=== PATIENT | male | born 1980 | race Caucasian/White ===

== ENCOUNTER 2018-01-17 10:43 | Inpatient (IN) | payer OTHER ==
[~2018-01-17] VITALS: Ht 177.8 cm; Wt 68.0 kg
--- NOTE | 2018-01-17 15:50 | NUR ---
Pre-admission Note: Client is seen in intake at this time. He appears anxious, flushed, agitated, sweating. He states "I feel so fatigued." He appears to be rubbing his back and states "My back is killing me, I think it's flaring up again." He appears worried, disheveled, and irritable. Educated patient on the admission process and verbalized good understanding. He states "I'm here for drugs" He reports using Whiskey, Xanax, Percocet and Marijuana. He reports past medical hx of Epilepsy, Bipolar Disorder, Anxiety Disorder, Chronic Low Back pain, Splenectomy, hx of intracerebral hemorrhage, traumatic brain injury, and L4/L5 surgery, He complains of fatigue, myalgia, anxiety, agitation, chills, runny nose, hot flashes and sweating. COWS 16/CIWA [address] upon [address] VS stable[address] Dr. Davidson aware of patient's arrival in intake office. Will continue with the admission process when patient arrives in the unit.
[2018-01-17] MEDS ORDERED: MIRALAX 17 GM POWD.PACK PO PRN (16:00)
[2018-01-17] MEDS ORDERED: LORAZEPAM 2 MG/1 ML VIAL IM PRN (16:00)
[2018-01-17] MEDS ORDERED: LORAZEPAM 1 MG TABLET PO PRN (16:00)
[2018-01-17] MEDS ORDERED: ONDANSETRON 4 MG/2 ML VIAL IM PRN (16:00)
[2018-01-17] MEDS ORDERED: MAGNESIUM HYDROXIDE 30 ML LIQUID UDC PO PRN (16:00)
[2018-01-17] MEDS ORDERED: CLONIDINE HCL 0.1 MG TABLET PO PRN (16:00)
[2018-01-17] MEDS ORDERED: LOPERAMIDE HCL 2 MG CAPSULE PO PRN ×2 (16:00)
[2018-01-17] MEDS ORDERED: DICYCLOMINE HCL 20 MG TABLET PO PRN (16:00)
[2018-01-17] MEDS ORDERED: MAG HYDROX/AL HYDROX/SIMETH 30 ML LIQUID UDC PO PRN (16:00)
[2018-01-17] MEDS ORDERED: diphenhydrAMINE 50 MG CAPSULE PO PRN (16:00)
[2018-01-17] MEDS ORDERED: THIAMINE HCL 200 MG/2 ML VIAL IM ONE (16:00)
[2018-01-17] MEDS ORDERED: METHOCARBAMOL 750 MG TABLET PO PRN (16:00)
[2018-01-17 16:02] VITALS: BP 113/64
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
[2018-01-17 16:21] LABS: BASOPHILS # (AUTO) 0.1 K/uL (0.0-8.0); BASOPHILS % (AUTO) 0.7 % (0.0-2.0); EOSINOPHILS # (AUTO) 0.3 K/uL (0.0-0.7); EOSINOPHILS % (AUTO) 3.4 % (0.0-7.0); HEMATOCRIT 47.4 % (36.7-47.1); HEMOGLOBIN 16.4 g/dL (12.5-16.3); LYMPHOCYTES # (AUTO) 3.5 K/uL (20.0-40.0); LYMPHOCYTES % (AUTO) 33.6 % (20.5-51.5); MEAN CORPUSCULAR HEMOGLOBIN 29.4 uug (23.8-33.4); MEAN CORPUSCULAR HGB CONC 35 g/dL (32.5-36.3); MEAN CORPUSCULAR VOLUME 84.8 fL (73.0-96.2); MONOCYTES # (AUTO) 0.8 K/uL (2.0-10.0); MONOCYTES % (AUTO) 7.8 % (0.0-11.0); NEUTROPHILS # (AUTO) 5.7 K/uL (1.8-8.9); NEUTROPHILS % (AUTO) 54.5 % (38.5-71.5); PLATELET COUNT (AUTO) 237 K/uL (152-348); RED BLOOD CELL COUNT(AUTO) 5.58 MIL/uL (4.06-5.63); WHITE BLOOD COUNT (AUTO) 10.4 K/uL (3.6-10.2)
[2018-01-17 16:32] LABS: *AMPHETAMINE, URINE NEGATIVE (NEGATIVE); *BARBITURATE, URINE NEGATIVE (NEGATIVE); *CANNABINOID, URINE POSITIVE (NEGATIVE); *COCCAINE, URINE NEGATIVE (NEGATIVE); *OPIATE, URINE NEGATIVE (NEGATIVE); *PHENCYCLIDINE SCREEN,URINE NEGATIVE (NEGATIVE)
[2018-01-17] MEDS ORDERED: BUPR300T52 PO (16:37)
[2018-01-17] MEDS ORDERED: DIVA500T4 PO (16:37)
[2018-01-17 16:38] LABS: BILIRUBIN,TOTAL 0.4 mg/dL (0.2-1.0); CREATININE 1.1 mg/dL (0.6-1.3); MAGNESIUM 2.4 mg/dL (1.8-2.4); POTASSIUM 3.7 mmol/L (3.5-5.1); TOTAL PROTEIN, SERUM 7.9 g/dL (6.4-8.2)
[2018-01-17] MEDS: BUPRENORPHINE HCL 2 MG TAB.SUBL SL PRN ×2 (16:47→22:04)
[2018-01-17] MEDS: LORAZEPAM 1 MG TABLET PO PRN (16:47)
[2018-01-17] MEDS: IBUPROFEN 600 MG TABLET PO PRN (16:47)
--- NOTE | 2018-01-17 16:47 | NUR ---
Ativan 2 mg/Subutex 4 mg/Robaxin 750 mg/Motrin 600 mg PO given: COWS 18/CIWA 16, patient presented with tremors, sweating, anxiety, agitation, myalgia, 6/10 low back pain, runny nose, and appears flushed. Heat packs provided to low back with no effect. Patient states "I feel like shit, like a truck ran over me, my joints just hurt." Medicated patient with Ativan 2 mg, Subutex 4 mg, Robaxin 750 mg and Motrin 600 mg PO as ordered. Will monitor for effectiveness.
--- NOTE | 2018-01-17 17:17 | NUR ---
Re-assessment: Subutex: COWS 11, less yawning, anxiety and less tremors noted. PRN Subutex was effective.
--- NOTE | 2018-01-17 17:47 | NUR ---
Re-assessment: Ativan/Motrin/Robaxin CIWA 12, patient is noted to be more at ease. He appears less anxious, less agitated. He is seen watching TV in his room. He reports PL is at 2/10. Ativan, Robaxin and Ativan has been effective.
--- NOTE | 2018-01-17 19:06 | NUR ---
End of Shift Notes: Patient will be starting his taper in AM. VS monitored closely. No significant abnormalities noted. Withdrawal symptoms were closely monitored, patient presented with chills, hot flashes, sweating, anxiety, agitation and tremors. Last , patient was medicated with Ativan 2 mg, Subutex 4 mg, Motrin and Robaxin at 1647 with help. On fall and seizure precautions. Stayed in his room for the remainder of the shift. Will continue to monitor
[2018-01-17 19:23] LABS: THYROID STIMULATING HORMONE 0.437 mIU/mL (0.358-3.740)
[2018-01-17 20:00] VITALS: BP 128/77
--- NOTE | 2018-01-17 20:00 | NUR ---
Start of Shift Patient lying on bed, with facial grimacing noted. Patient appears anxious, focused on his low back pain r/t history of lumbar surgery and compressed disc. Pain level=8-9/10. Pt is AAOx4. Patient verbalized, "the pain in my low back is killing me." Patient noted to have flushed skin and with tremors noted. Pt noted to be melancholic and isolative. Provided education, teachings and instructions on medications, plan of care and treatment. Fall, universal, seizure and safety prec in place. Call light within reach. Latest COWS=12, CIWA=12. Will continue to monitor.
[2018-01-17] MEDS ORDERED: LORAZEPAM 1 MG TABLET PO SCH (21:00)
[2018-01-17] MEDS ORDERED: PATIENT MAY USE OWN MED- MD OK PO SCH (21:00)
[2018-01-17] MEDS ORDERED: DIVALPROEX ER 500 MG TAB.SR.24H PO ONE (21:00)
[2018-01-17] MEDS ORDERED: KETOROLAC TROMETHAMINE 30 MG INJ IM ONE (21:15)
[2018-01-17] MEDS: GABAPENTIN 300 MG CAPSULE PO SCH (21:39)
--- NOTE | 2018-01-17 22:05 | NUR ---
RN note PRN Subutex Pt c/o increasing anxiety, goosebumps and noted to be flushed and with sweating. COWS=14. Administered Subutex 4 mg SL PRN as ordered. Will reassess.
--- NOTE | 2018-01-17 23:05 | NUR ---
RN note reassess Pt appears more relaxed, verbalized that anxiety has "somewhat decreased" and no piloerection noted. COWS=11.
[2018-01-18] VITALS: BP 117/74
[2018-01-18] MEDS: ACETAMINOPHEN 325 MG TABLET PO PRN (00:57)
--- NOTE | 2018-01-18 00:58 | NUR ---
RN note PRN Tylenol Pt c/o headache=03/19. Administered Tylenol 650 mg PO PRN as ordered. Will reassess.
--- NOTE | 2018-01-18 02:00 | NUR ---
RN note reassess Pt verbalized that headache decreased to 3/10.
[2018-01-18 04:00] VITALS: BP 124/71
--- NOTE | 2018-01-18 07:18 | NUR ---
End of Shift Patient asleep on bed, arousable, and continues to c/o low back pain. Patient with flushed skin, sweating and tremors noted. Pt appears depressed and isolative. Fall, universal, seizure and safety prec in place. Call light within reach. Latest COWS=10, CIWA=10, slept for 4 hours. Will continue to monitor.
--- NOTE | 2018-01-18 07:36 | NUR ---
START OF SHIFT Pt is a 37 yr old male, A&Ox4. pt was admitted on 01/17/18 for ETOH/Benzo/Opiate withdrawal and is on 5 day Subutex and 5 day Ativan taper as ordered. Received report from shift commander nurse. Pt received Toradol x1 for back pain. medication was effective. Pt slept for 4 hrs. Last COWS score was 10 and CIWA score was 10. Pt is currently in bed resting with respirations even and unlabored. Skin is intact, warm and moist to touch. Safety precautions observed. Call light is within reach. Will continue to monitor.
[2018-01-18 08:00] VITALS: BP 112/70
[2018-01-18 08:06] LABS: HEPATITIS B SURFACE AG Negative (Negative)
[2018-01-18] MEDS: BUPRENORPHINE HCL 2 MG TAB.SUBL SL SCH ×4 (08:48→21:26)
--- NOTE | 2018-01-18 08:48 | NUR ---
NSG NOTES Pt is noted with with increase anxiety m/b difficulty staying still. Pt is noted with facial sweats and fine tremors on bilateral hands. Pt is c/o runny nose, abdominal cramping and muscle aches and headache. COWS score was 15 and CIWA score was 14. Subutex 4mg SL and Ativan 2mg PO as scheduled at 0900 was administered and joao well. Encouraged increase fluid intake. Will continue to monitor.
[2018-01-18] MEDS: THIAMINE HCL 100 MG TABLET PO SCH (08:49)
[2018-01-18] MEDS: LORAZEPAM 1 MG TABLET PO SCH ×4 (08:49→21:26)
[2018-01-18] MEDS: FOLIC ACID 1 MG TABLET PO SCH (08:49)
[2018-01-18] MEDS: MULTIVITAMINS,THERAPEUTIC TABLET PO SCH (08:49)
[2018-01-18] MEDS: GABAPENTIN 300 MG CAPSULE PO SCH ×3 (08:49→21:26)
[2018-01-18] MEDS ORDERED: TUBERCULIN,PURIF.PROT.DERIV. 5 TU/0.1 ML TEST ID ONE (09:00)
[2018-01-18 12:00] VITALS: BP 129/80
[2018-01-18] MEDS: ONDANSETRON ODT 4 MG TAB.RAPDIS SL PRN (12:36)
--- NOTE | 2018-01-18 12:36 | NUR ---
PRN Zofran 4mg SL administered for intermittent nausea, no episodes of emesis. Mirlande guicho and saltine crackers offered to client. Primary nurse to reassess. call light within reach.
--- NOTE | 2018-01-18 13:36 | NUR ---
PRN RE-ASSESSMENT Zofran PRN was effective. Pt denies any n/v.
--- NOTE | 2018-01-18 15:36 | NUR ---
ENDORSEMENT GIVEN Gave report to Nayely PAGAN to continue with care. Pt is cooperative with medication regimen. Last COWS score was 16 and CIWA score was 12 at 1200. Pt received Zofran PRN for nausea at 1236. Medication was effective. Pt is in stable condition.
--- NOTE | 2018-01-18 15:37 | NUR ---
ASSUMED CARE Assumed care for patient from primary nurse, all pertinent information discussed, will continue to monitor patient closely.
[2018-01-18 16:50] VITALS: BP 136/82
[2018-01-18] MEDS: LORAZEPAM 1 MG TABLET PO PRN (18:57)
--- NOTE | 2018-01-18 18:57 | NUR ---
PRN ATIVAN received PRN: Ativan 2 mg PO as ordered for s/sx of withdrawal with ciwa score of: 13. Patient with increase anxiety, restlessness, and diaphoresis, flushed face, clammy skin, increase respirations, inability to sit still, and fidgety. Patient provided with non pharmacological interventions with no relief. endorsed to restaurant shift leader nurse to follow up on effectiveness of medication.
--- NOTE | 2018-01-18 19:03 | NUR ---
END OF SHIFT Patient monitored closely, continues on Ativan and Subutex taper as ordered. patient presented with: anxiety, agitation, head fullness, sweats, enlarged pupils, bone and joint aches, abdominal cramps and goosebump. Patient with last cow score of: 12 and ciwa score of: 13, received PRN: Ativan 2mg PO as ordered for s/sx of withdrawal with ciwa score of: 13. Patient with increase anxiety, restlessness, and diaphoresis. Endorsed to night stocker nurse to follow up on effectiveness of medication. Patient encouraged participation in therapy sessions, patient denies any SI/HI, Patient was encouraged to verbalize feelings, encouraged to develop coping skills and utilization of non pharmacological interventions.Encouraged patient to increase PO fluid intake as tolerated. Patients safety measures are in place. call light kept within reach, will continue to monitor. Endorsed to night stocker nurse, all pertinent information discussed.
[2018-01-18 20:00] VITALS: BP 141/76
--- NOTE | 2018-01-18 20:00 | NUR ---
Start of Shift Patient asleep on bed, got startled and screamed when woken up gently. Per patient, "I don't know why I screamed. I think I almost had a panic attack. But I know I'm in a safe place." Pt is AAOx4, noted with anxiety and c/o low back pain=4/10. Pt noted to be melancholic and isolative, with flushed skin and tremors observed. Provided education, teachings and instructions on medications, plan of care and treatment. Fall, universal, seizure and safety prec in place. Call light within reach. Latest COWS=11, CIWA=9. Will continue to monitor.
[2018-01-18] MEDS ORDERED: DIVALPROEX ER 500 MG TAB.SR.24H PO SCH ×2 (21:00)
[2018-01-18] MEDS: BACLOFEN 10 MG TABLET PO SCH (21:26)
[2018-01-18] MEDS: KETOROLAC TROMETHAMINE 30 MG INJ IM PRN (21:27)
[2018-01-18] MEDS: DEPAKOTE 500 MG PO SCH (21:28)
--- NOTE | 2018-01-18 21:29 | NUR ---
RN note PRN Toradol Pt c/o low back pain=9/10, with facial grimacing, moaning and restlessness noted. Administered Toradol 30 mg IM PRN as ordered. Will reassess.
--- NOTE | 2018-01-18 22:05 | NUR ---
RN note reassess Pt verbalized pain level decreased to 4/10.
[2018-01-19] VITALS (7 sets, daily range): BP systolic 117–153; BP diastolic 69–86
--- NOTE | 2018-01-19 07:19 | NUR ---
End of Shift Patient asleep on bed, arousable, AAOx4 and continues to c/o low back pain, current pain level=3/10. Per patient, Toradol was effective in controlling low back pain. Patient with flushed skin, sweating and tremors noted. Pt continues to appear depressed. Fall, universal, seizure and safety prec in place. Call light within reach. Latest COWS=9, CIWA=8, slept for 5 hours. Endorsed to AM shift nurse for continuity of care.
--- NOTE | 2018-01-19 07:58 | NUR ---
BEGINNING OF SHIFT Patient endorsement report received from night order selector nurse, all pertinent information discussed. Patient is a 37 year old male with admitting Dx: Opiate/BZO/etoh withdrawal. Patient is Currently under close observation, patient currently with ongoing Subutex taper as ordered and Ativan taper as ordered. fall and seizure precautions in place and observed at all times. patient slept for 5 hours. Patient with last ciwa score of: 8, last cow score of: 9. Patient received in bed with eyes closed respirations even and unlabored, responsive to verbal stimuli. will educated regarding plan of care for the day, and medication regimen. Patient received PRN: toradol during night order selector. will continue to monitor closely. safety measures in place.
[2018-01-19] MEDS: THIAMINE HCL 100 MG TABLET PO SCH (09:02)
[2018-01-19] MEDS: LORAZEPAM 1 MG TABLET PO SCH ×3 (09:02→20:40)
[2018-01-19] MEDS: FOLIC ACID 1 MG TABLET PO SCH (09:02)
[2018-01-19] MEDS: MULTIVITAMINS,THERAPEUTIC TABLET PO SCH (09:02)
[2018-01-19] MEDS: BACLOFEN 10 MG TABLET PO SCH ×3 (09:03→20:39)
[2018-01-19] MEDS: GABAPENTIN 300 MG CAPSULE PO SCH ×2 (09:03→14:22)
[2018-01-19] MEDS: BUPRENORPHINE HCL 2 MG TAB.SUBL SL SCH ×3 (09:03→20:41)
[2018-01-19] MEDS: KETOROLAC TROMETHAMINE 30 MG INJ IM PRN ×3 (09:03→23:01)
--- NOTE | 2018-01-19 09:04 | NUR ---
PRN TORADOL Patient c/o back pain 03/19, provided with non pharmacological interventions with no relief, administered Toradol Inj as ordered, inj well tolerated, will monitor effectiveness of medication.
--- NOTE | 2018-01-19 10:04 | NUR ---
TORADOL REASSESSMENT Patient reports medication effective, decrease in back pain, current pain level 2/10, tolerable as per patient. will continue to monitor closely.
[2018-01-19] MEDS: DICYCLOMINE HCL 20 MG TABLET PO SCH ×2 (14:21→20:39)
--- NOTE | 2018-01-19 15:50 | NUR ---
ENDORSED CARE Endorsed patient to staff nurse, all pertinent information was discussed. Patient was monitored closely, continues on Ativan and Subutex taper as ordered. patient presented with: elevated heart rate, c/o chills, difficulty sitting still, enlarged pupils, bone and joint aches, moist eyes, yawning, anxiety and gooseflesh.Patient with initial cow score of: 13, and ciwa score of: 11. Patient received PRN: Toradol Injection for back pain , medication was effective, one hour post administration. Patient encouraged participation in therapy sessions, patient denies any SI/HI, Patient was encouraged to verbalize feelings, encouraged to develop coping skills and utilization of non pharmacological interventions.Encouraged patient to increase PO fluid intake as tolerated. Patients safety measures are in place. call light kept within reach, will continue to monitor. Endorsed to staff nurse.
--- NOTE | 2018-01-19 16:00 | NUR ---
ENDORSEMENT RECEIVED ALL PERTINENT INFORMATION RECEIVED FROM OFF GOING NURSE, WILL RESUME CARE OF PATIENT.
--- NOTE | 2018-01-19 17:00 | NUR ---
PRN TORADOL TORADOL 30MG IM GIVEN IN LEFT DELTOID FOR PAIN 8/10 , GENERALIZED BODY ACHES WILL REASSESS
--- NOTE | 2018-01-19 18:00 | NUR ---
TORADOL REASSESS TORADOL 30MG IM EFFECTIVE, PAIN IS NOW 3/10, CONTINUE TO MONITOR
--- NOTE | 2018-01-19 18:46 | NUR ---
END OF SHIFT : PATIENT IS A 37 YR OLD MALE ADMITTED TO [facility] ON 01/17/18 FOR A MEDICALLY SUPERVISED WITHDRAWAL FROM OPIATES/BENZO'S AND ALCOHOL, HE IS ON A 5 DAY ATIVAN/SUBUTEX TAPER AND THIS IS DAY 2. PRN MEDS REQUIRED ON THIS SHIFT : TORADOL 30MG IM X 2. PATIENT HAD A FLUID INTAKE OF 2800 ML, 4 VOIDS AND 0 BM, LAST COWS 9 AND CIWA 9 @ 1700. HE HAS BEEN ATTENDING ALL GROUPS TODAY AND INTERACTING WITH HIS PEERS. PATIENTS WITHDRAWAL SYMPTOMS INCLUDE GENERALIZED BODY ACHES, FLUSHED FACE , BILATERAL TREMORS AND INCREASED ANXIETY. CONTINUE TO FOLLOW MD PLAN OF CARE. ENDORSED TO NIGHT NURSE.
--- NOTE | 2018-01-19 19:30 | NUR ---
START OF SHIFT Received 37 year old male patient admitted on 01/17/18 for ETOH, Xanax, Percocet, Marijuana and Heroin withdrawal. He is alert and oriented x4. Pt noted with anxiety, restlessness, and irritability and complains of body aches. He is receiving a 5 day Ativan and 5 day Subutex taper and is tolerating well. Per endorsement, he received PRN Toradol. Last dose was COWS:9, CIWA:9 at 1700. Breathing is even and unlabored, safety measures in place. Will continue to monitor.
[2018-01-19] MEDS: CLONIDINE HCL 0.1 MG TABLET PO SCH (20:40)
[2018-01-19] MEDS: DEPAKOTE 500 MG PO SCH (20:41)
[2018-01-19] MEDS ORDERED: GABAPENTIN 300 MG CAPSULE PO SCH (21:00)
--- NOTE | 2018-01-19 23:01 | NUR ---
PRN TORADOL Pt complains of left lower back achy pain 10/10. Pt noted with irritability, restlessness and facial grimacing. PRN Toradol administered as ordered. Safety measures in place. Will monitor effectiveness.
--- NOTE | 2018-01-19 23:31 | NUR ---
PRN TORADOL REASSESSMENT PRN medication effective. Pt lying in bed with eyes closed noted to be asleep. Breathing is even and unlabored, safety measures in place. Will monitor.
[2018-01-20] MEDS: ACETAMINOPHEN 325 MG TABLET PO PRN (03:14)
[2018-01-20] MEDS: HYDROXYZINE PAMOATE 25 MG CAPSULE PO PRN (03:14)
--- NOTE | 2018-01-20 03:14 | NUR ---
PRN VISTARIL/TYLENOL Pt complains of headache 6/10 and anxiety. PRN Vistaril and Tylenol administered as ordered. Safety measures in place. Will monitor effectiveness.
--- NOTE | 2018-01-20 04:00 | NUR ---
VITALS REFUSED/COWS, CIWA DEFERRED 0400 vitals refused d/t difficulty falling asleep. COWS and CIWA deferred d/t pt lying in bed with eyes closed and is asleep. Breathing is even and unlabored, safety measures in place. Will monitor.
--- NOTE | 2018-01-20 04:14 | NUR ---
PRN REASSESSMENT PRN medications effective. Pt is lying in bed with eyes closed noted to be asleep. Breathing is even and unlabored, safety measures in place. Will monitor.
--- NOTE | 2018-01-20 06:56 | NUR ---
END OF SHIFT Pt is a 37 year old male patient admitted on 01/17/18 for ETOH, Xanax, Percocet, Marijuana and Heroin withdrawal. He remains alert and oriented x4. Pt was noted with anxiety, restlessness, irritability, body aches, running nose, and insomnia during the shift. He continues on a 5 day Ativan and 5 day Subutex taper and is tolerating well. He received PRN Toradol, Tylenol and Vistaril. He slept a total of 5 hrs, Intake:736mL, Void:x2, BM:0, COWS:10, CIWA:11 at 2300. Breathing is even and unlabored, safety measures in place. Will endorse to AM shift.
--- NOTE | 2018-01-20 07:30 | NUR ---
Start of shift note; Received report from night nurse. Patient is a 37 year old male admitted on 01/17/18 for ETOH/ Benzodiazepine/ Opiate withdrawals. Patient was placed on a 5 day and 5 day Subutex taper, no adverse reactions noted. Patient reported history of epilepsy and withdrawal induced seizures. Patient is on fall and seizure precautions. Educated patient regarding the importance of compliance to treatment and medication regime, patient verbalized understanding. Encouraged patient to verbalize feelings and participate in group therapy and activities. Patient reported lack of sleep, anxiety, stomach cramps, Muscle aches, patient appears restless complaining of diaphoresis. All safety measures secured. Will closely monitor patient.
[2018-01-20 08:00] VITALS: BP 135/95
[2018-01-20] MEDS: DICYCLOMINE HCL 20 MG TABLET PO SCH ×3 (08:17→20:05)
[2018-01-20] MEDS: MULTIVITAMINS,THERAPEUTIC TABLET PO SCH (08:17)
[2018-01-20] MEDS: FOLIC ACID 1 MG TABLET PO SCH (08:18)
[2018-01-20] MEDS: BACLOFEN 10 MG TABLET PO SCH (08:18)
[2018-01-20] MEDS: CLONIDINE HCL 0.1 MG TABLET PO SCH ×2 (08:18→20:05)
[2018-01-20] MEDS: THIAMINE HCL 100 MG TABLET PO SCH (08:18)
[2018-01-20] MEDS: GABAPENTIN 300 MG CAPSULE PO SCH ×3 (08:18→20:05)
[2018-01-20] MEDS ORDERED: LORAZEPAM 1 MG TABLET PO SCH ×2 (09:00→21:00)
[2018-01-20] MEDS ORDERED: BUPRENORPHINE HCL 2 MG TAB.SUBL SL SCH (09:00)
--- NOTE | 2018-01-20 10:24 | NUR ---
Client was prompted to attend twice daily group therapy sessions and client stated he would attend.
[2018-01-20] MEDS ORDERED: LORAZEPAM 1 MG TABLET PO PRN (10:30)
[2018-01-20] MEDS ORDERED: LORAZEPAM 1 MG TABLET PO ONE (10:30)
[2018-01-20] MEDS: DIVALPROEX 250 MG TABLET.DR PO SCH (10:36)
--- NOTE | 2018-01-20 10:39 | NUR ---
MD communication; Patient reported that he is worried that he may have a seizure episode r/t history of withdrawal induced seizures and epilepsy manifested by patient reports aura and metallic taste . Seizure precautions observed, padded side rails up. Placed patient on 1:1 supervision per MD order for seizure precautions. MD ordered one time dose of Ativan 2mg PO one time and Depakote 250mg PO to prevent any withdrawal induced seizures. Medications given as per MD order. Patient's CIWA score is 13 at this time manifested by increase anxiety, agitation, restlessness, diaphoresis, tingling sensation, and diaphoresis. Will closely monitor patient. Sitter at bedside.
[2018-01-20 12:00] VITALS: BP 130/89
[2018-01-20] MEDS ORDERED: TRAZODONE 50 MG TABLET PO PRN (12:15)
[2018-01-20] MEDS: LORAZEPAM 1 MG TABLET PO SCH ×2 (13:05→16:12)
[2018-01-20] MEDS ORDERED: OLANZAPINE ZYDIS 5 MG TAB.RAPDIS PO ONE (13:45)
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
--- NOTE | 2018-01-20 14:48 | NUR ---
Re-assessment; Patient is Awake, calm and comfortable. Redirected patient as needed. Will closely monitor patient for episodes of hallucinations. Safety measures secured. Medical MD was notified of patient's current condition.
[2018-01-20] MEDS: BUPRENORPHINE HCL 2 MG TAB.SUBL SL SCH ×2 (14:58→20:05)
[2018-01-20] MEDS: BACLOFEN 20 MG TABLET PO SCH ×2 (14:58→20:05)
[2018-01-20] MEDS: DOCUSATE SODIUM 250 MG CAPSULE PO SCH (15:00)
[2018-01-20 16:00] VITALS: BP 135/93
[2018-01-20] MEDS: LORAZEPAM 1 MG TABLET PO PRN (17:19)
--- NOTE | 2018-01-20 17:19 | NUR ---
PRN medication; Patient's current CIWA is 15 manifested by anxiety, agitation, patient unable to sit still, tingling sensation. diaphoresis, auditory mild sensitivity, intermittent episodes of visual hallucinations. Patient remained on 1:1 supervision for safety. PRN Ativan 2mg PO given for CIWA of 15. Will closely monitor patient.
--- NOTE | 2018-01-20 18:19 | NUR ---
Re-assessment; Patient current CIWA score is 12, CIWA score has improved. PRN Ativan was effective. Redirected/reoriented patient as needed. Patient is awake, oriented to name , and place. Sitter remained at bedside.
--- NOTE | 2018-01-20 18:54 | NUR ---
End of shift note; Patient is awake, oriented to name , and place. Patient appears anxious, agitated, complaining of tingling sensation, mild sensitivity to auditory disturbances and visual disturbances. Patient received one time dose of Zyprexa 10mg for visual hallucination. Patient also received PRN Ativan for elevated CIWA scores. Last CIWA score is 12 at 1819. Patient continues to be on 1:1 supervision for safety and seizure precautions. All safety measures secured. Met all needs.
--- NOTE | 2018-01-20 19:30 | NUR ---
START OF SHIFT Pt is a 37 y/o male admitted on 01/17/18 for ETOH, benzo and opiate withdrawal. Pt is on a 5 day Ativan and 5 day Subutex taper, 2 one time orders of Ativan 2 mg and PRN Ativan 2 mg administered during day shift. Last CIWA 12 during day shift, pt noted to experience disorientation, confusion and visual hallucinations. Pt on 1:1 for safety. Upon assessment pt is disoriented to place, time and situation. Pt presents with confusion, anxiety, restlessness, inability to sit still, visual disturbances, auditory disturbances, back pain, sweats, agitation. Reoriented patient, pt verbalized feelings of wanting to leave, states, "I need to make sure my sisters are okay." Medications due. Safety measures in place. 1:1 sitter with pt. Will continue to monitor.
[2018-01-20 20:00] VITALS: BP 147/98
[2018-01-20] MEDS ORDERED: QUETIAPINE FUMARATE 100 MG TABLET PO ONE (20:00)
--- NOTE | 2018-01-20 20:00 | NUR ---
PSYCHIATRIST CALLED Pt presents with severe anxiety and agitation, psychiatrist called at 1950, gave one time order for Seroquel 100 mg. Safety measures in [address]. 1:1 sitter with pt.
[2018-01-20] MEDS: DEPAKOTE 500 MG PO SCH (20:04)
--- NOTE | 2018-01-20 20:50 | NUR ---
CRISIS TEAM CALLED Pt verbalized feelings of wanting to leave AMA. Pt presents with confusion, disorientation to place, time and situation. Pt states "I need to leave to check on my sisters, I need to make sure she is safe....We just left the train together." Pt made attempts to leave room/unit. Pt also presents with anxiety, agitation, restlessness.
--- NOTE | 2018-01-20 21:30 | NUR ---
CRISIS TEAM NOTE Pt evaluated by crisis team. Pt placed on 5150 hold for safety. 1:1 sitter at bedside. Safety measures in place.
--- NOTE | 2018-01-21 | NUR ---
COWS/CIWA DEFERRED AND VITALS REFUSED Pt laying in bed with eyes closed, COWS/CIWA deferred, to be assessed when pt is awake per orders. Vitals refused. Respirations even and unlabored. Safety measures in place. Call light within reach. Will continue to monitor.
--- NOTE | 2018-01-21 05:00 | NUR ---
PRN ATIVAN 2 MG ADMINISTRATION CIWA 18, pt presents with anxiety, sweats, visual disturbances, auditory disturbances, confusion, and is disoriented to place, time and situation. Pt mumbling incoherent statements. Safety measures in place. 1:1 sitter at bedside. Will continue to monitor.
[2018-01-21] MEDS: LORAZEPAM 1 MG TABLET PO PRN (05:01)
--- NOTE | 2018-01-21 06:00 | NUR ---
PRN ATIVAN 2 MG REASSESSMENT Pt laying in bed with eyes closed, medication noted effective. Safety measures in place. 1:1 sitter at bedside. Will continue to monitor.
--- NOTE | 2018-01-21 07:15 | NUR ---
END OF SHIFT Pt is a 37 y/o male admitted on 01/17/18 for ETOH, benzo and opiate withdrawal. Pt is on a 5 day Ativan and 5 day Subutex taper, additional Ativan administered during shift. Pt on 1:1 for safety. Pt presented with disorientation to place/time/situation, confusion, anxiety, restlessness, inability to sit still, visual disturbances, auditory disturbances, back pain, sweats, agitation. Reoriented patient, pt verbalized feelings of wanting to leave, states, "I need to make sure my sisters are okay." Psychiatrist called, one time order for Seroquel 100 mg administered at 1999. Crisis team arrived on unit at 2130 for pt verbalizing feelings of wanting to leave AMA while pt was confused, disoriented and hallucinating. Pt placed on 5150 hold. Scheduled medications and PRN Ativan 2 mg administered, effective in S/S of withdrawal AEB COWS 13 and CIWA 23 lowered to COWS 10 and CIWA 18 during shift. Pt slept 10 hours. Intake 500 ml, void x 2, stool x 0. Safety measures in place. 1:1 sitter at bedside. Pts needs have been met. Endorsed to day shift nurse.
[2018-01-21 08:00] VITALS: BP 120/90
--- NOTE | 2018-01-21 08:35 | NUR ---
START OF SHIFT PT IS A 37 Y/O M ADMITTED ON 01/17/18 FOR MEDICALLY SUPERVISED ETOH, BENZO, AND OPIATE WITHDRAWAL. PT IS ON A 5 DAY ATIVAN AND SUBUTEX TAPER; TOLERATING WELL. PT CONTINUES ON 1:1 SITTER; PT HAS BEEN PLACED ON 5150 HOLD LAST NIGHT. PT HAS A FLAT AFFECT, PT IS MOVING THINGS AROUND THE BREAKFAST TRAY AND HAS NO EYE CONTACT WHEN TALKING. PT IS DISTRUSTING OF STAFF AND IS DISORIENTED TO TIME, PLACE AND CURRENT SITUATION. PT PRESENTS AGITATION, ANXIETY, IRRITABILITY, RESTLESSNESS, DIAPHORESIS, HOT/COLD FLASHES, PUPIL DILATION, GENERALIZED BODY ACHES, SENSITIVITY TO LIGHT. REORIENTED PT AND ENCOURAGED PT TO VERBALIZED FEELINGS. SIDE RAILS UPX2 AND PADDED, BED IN LOW POSITION, CALL LIGHT WITHIN REACH. SAFETY MEASURES IN PLACE. WILL MONITOR AND PROVIDE CARE.
[2018-01-21] MEDS ORDERED: LORAZEPAM 1 MG TABLET PO SCH ×3 (09:00→21:00)
[2018-01-21] MEDS: FOLIC ACID 1 MG TABLET PO SCH (09:49)
[2018-01-21] MEDS: MULTIVITAMINS,THERAPEUTIC TABLET PO SCH (09:49)
[2018-01-21] MEDS: CLONIDINE HCL 0.1 MG TABLET PO SCH ×2 (09:50→20:15)
[2018-01-21] MEDS: GABAPENTIN 300 MG CAPSULE PO SCH ×2 (09:50→14:37)
[2018-01-21] MEDS: THIAMINE HCL 100 MG TABLET PO SCH (09:50)
[2018-01-21] MEDS: BACLOFEN 20 MG TABLET PO SCH ×3 (09:50→20:14)
[2018-01-21] MEDS: DOCUSATE SODIUM 250 MG CAPSULE PO SCH (09:50)
[2018-01-21] MEDS: DICYCLOMINE HCL 20 MG TABLET PO SCH ×3 (09:50→20:14)
[2018-01-21] MEDS: BUPRENORPHINE HCL 2 MG TAB.SUBL SL SCH ×3 (09:51→20:16)
[2018-01-21] MEDS: DIVALPROEX 250 MG TABLET.DR PO SCH (09:52)
[2018-01-21] MEDS: LIDOCAINE 5% PATCH TD SCH ×2 (10:45→11:40)
--- NOTE | 2018-01-21 12:00 | NUR ---
COWS/CIWA DEFERRED VS REFUSED PT IS LAYING IN BED WITH EYES CLOSED SLEEPING. RESPIRATIONS EVEN EVEN AND UNLABORED, RR:16. SAFETY MEASURES IN PLACE. 1:1 SITTER AT BEDSIDE. WILL CONTINUE TO MONITOR.
--- NOTE | 2018-01-21 12:39 | NUR ---
Firearms Report: Straddle Bug completed and submitted [employer] Firearms Report per hospital policy on 01/21/18.
[2018-01-21] MEDS: IBUPROFEN 600 MG TABLET PO PRN (14:37)
[2018-01-21 14:48] VITALS: BP 136/86
--- NOTE | 2018-01-21 14:50 | NUR ---
PRN IBUPROFEN 600 MG PO PRN GIVEN FOR C/O BACK ACHE 03/19 PAIN. WILL MONITOR AND REASSESS.
[2018-01-21] MEDS: ONDANSETRON ODT 4 MG TAB.RAPDIS SL PRN (14:58)
--- NOTE | 2018-01-21 14:58 | NUR ---
PRN ZOFRAN 4 MG SL PRN GIVEN FOR C/O NAUSEA. PT STATED THE SUBUTEX CAUSED NAUSEA. WILL MONITOR AND REASSESS. 1:1 AT BEDSIDE.
--- NOTE | 2018-01-21 15:58 | NUR ---
REASSESSMENT PT IS LAYING BED WITH EYES CLOSED, APPEARS TO BE SLEEPING. RESPIRATIONS EVEN AND UNLABORED, RR:16. SAFETY MEASURES IN PLACE. 1:1 SITTER AT BEDSIDE WILL CONTINUE TO MONITOR.
--- NOTE | 2018-01-21 16:00 | NUR ---
COWS/CIWA DEFERRED VS REFUSED PT IS SLEEPING AT THIS TIME; COWS/CIWA AND VS TO BE ASSESS WHEN PT IS AWAKE. SITTER AT BEDSIDE.
--- NOTE | 2018-01-21 19:13 | NUR ---
END OF SHIFT LAST COWS 14 AND CIWA 16 @1600. PT A/OX2, PRESENTED DISORIENTATION AND CONFUSION DURING SHIFT. PT APPEARED TO BE DISTRUSTING OF STAFF IN AM. PT TOOK MULTIPLE NAPS DURING SHIFT. WHEN PT HAD AWOKE MID AFTERNOON, PT WAS IN A GOOD MOOD AND TRUSTING OF STAFF, C/O DIAPHORESIS, HAVING GENERALIZED BODY ACHES, FEELING LIKE BEING "HIT BY A TRUCK." PT MUMBLED ABOUT NOT WANTING TO PARTICIPATE IN FOOTBALL. PT WAS NOT ORIENTED TO SITUATION, PLACE AND TIME AT 1520 BEFORE FALLING BACK ASLEEP. PT CONTINUES ON 5150 HOLD FOR BEING GRAVELY DISABLED; 1:1 SITTER BY BEDSIDE. LAST COWS 14 AND CIWA 16 @ 1450. SAFETY MEASURES IN PLACE. WILL GIVE ENDORSEMENT TO PAINTER AND GRADER CORK.
--- NOTE | 2018-01-21 19:35 | NUR ---
START OF SHIFT Received 37 year old male patient admitted on 01/17/18 for ETOH, Xanax, Percocet, Marijuana, and Heroin withdrawal. He is on a 5150 for GD and on 1:1 for safety. Pt is alert and oriented x3. He is able to verbalize his name, place and situation. Pt is disoriented to date and thinks the month is June. Reoriented pt to correct date. Pt verbalized understanding. Pt noted with anxiety, agitation, restlessness, clammy skin, and he denies visual/auditory hallucinations. Pt stated " I'm not seeing or hearing anything right now, but I was earlier today." Per endorsement, pt was noted with confusion and disorientation during the day but was able to be redirected. He receieved PRN Ibuprofen. Last COWS:14, CIWA:16 at 1400. Breathing is even and unlabored, safety measures in place. Will monitor.
[2018-01-21 20:00] VITALS: BP 124/102
[2018-01-21] MEDS: LEVETIRACETAM 500 MG TABLET PO SCH (20:15)
[2018-01-21] MEDS: DEPAKOTE 500 MG PO SCH (20:15)
[2018-01-21] MEDS: QUETIAPINE FUMARATE 25 MG TABLET PO PRN (20:18)
--- NOTE | 2018-01-21 20:18 | NUR ---
PRN SEROQUEL Pt noted with agitation, restlessness, and irritability. PRN Seroquel administered as ordered. Safety measures in place. Will monitor effectiveness.
[2018-01-21] MEDS ORDERED: GABAPENTIN 300 MG CAPSULE PO SCH (21:00)
[2018-01-21 21:15] VITALS: BP 129/86
--- NOTE | 2018-01-21 21:18 | NUR ---
PRN SEROQUEL REASSESSMENT PRN medication effective. Pt lying in bed with eyes closed noted to be asleep. Breathing is even and unlabored, safety measures in place. Will monitor.
[2018-01-22 02:50] VITALS: BP 110/67
[2018-01-22] MEDS: KETOROLAC TROMETHAMINE 30 MG INJ IM PRN (02:55)
--- NOTE | 2018-01-22 02:55 | NUR ---
PRN TORADOL Pt complains of lower back pain 06/19. Pt states " I woke up and my lower back really hurts." PRN Toradol administered as ordered. Safety measures in place. Will monitor effectiveness.
--- NOTE | 2018-01-22 03:25 | NUR ---
PRN TORADOL REASSESSMENT Medication effective. Pt is lying in bed with eyes closed noted to be asleep. No facial grimacing noted. Breathing is even and unlabored, safety measures in place. Will monitor.
--- NOTE | 2018-01-22 06:58 | NUR ---
END OF SHIFT Pt is a 37 year old male patient admitted on 01/17/18 for ETOH, Xanax, Percocet, MJ, and Heroin withdrawal. He remains on 5150 for GD and on 1:1 for safety. Pt remains alert and oriented x3. He was able to verbalize name, place and situation, but was disoriented to date and thought the month was June. Pt was reoriented and redirected. He denied any visual or auditory hallucinations during the shift. He was noted with anxiety, agitation, restlessness and irritability and received PRN Seroquel at 2018. At 0255 he complained of lower back pain and received PRN Toradol. He slept a total of 8 hrs, Intake: 600mL, Void: x1, BM:0, COWS:9, CIWA:12 at 0300. Breathing is even and unlabored, safety measures in place. Endorsed to AM shift.
--- NOTE | 2018-01-22 07:30 | NUR ---
Start of Shift Equity Trader received report on 37 year old male admitted to [facility] on 01/17/18 for medical management of ETOH, Benzodiazepine and Opiate withdrawals. Pt endorses NKA, full code and regular diet. Pt endorses PMH of Epilepsy, TBI, chronic back pain with spine surgery as well multiple surgeries. PPH of Bipolar and anxiety. Pt currently on a Ativan and Subutex taper, tolerating well with last COWS 9 and CIWA 12 at 0300, per NOC report. Pt administered Seroquel(Insomnia/Psychosis) and Toradol(pain) PRN per NOC report. Pt is currently on a 5150 legal status d/t GD, with 1:1 attendant at bedside. Equity Trader encounters pt in room resting with eyes closed, rise and fall of chest noted with even and unlabored respirations. Bed in low position with wheels locked and side rails up x2. Will continue to monitor, support and encourage according to plan of care.
[2018-01-22 08:30] VITALS: BP 103/67
[2018-01-22] MEDS ORDERED: LORAZEPAM 1 MG TABLET PO SCH (09:00)
[2018-01-22] MEDS: DOCUSATE SODIUM 250 MG CAPSULE PO SCH (09:35)
[2018-01-22] MEDS: FOLIC ACID 1 MG TABLET PO SCH (09:35)
[2018-01-22] MEDS: DICYCLOMINE HCL 20 MG TABLET PO SCH ×3 (09:35→21:50)
[2018-01-22] MEDS: LORAZEPAM 1 MG TABLET PO SCH ×3 (09:35→21:50)
[2018-01-22] MEDS: DIVALPROEX 250 MG TABLET.DR PO SCH (09:35)
[2018-01-22] MEDS: CLONIDINE HCL 0.1 MG TABLET PO SCH ×2 (09:35→21:51)
[2018-01-22] MEDS: MULTIVITAMINS,THERAPEUTIC TABLET PO SCH (09:36)
[2018-01-22] MEDS: LIDOCAINE 5% PATCH TD SCH (09:36)
[2018-01-22] MEDS: THIAMINE HCL 100 MG TABLET PO SCH (09:36)
[2018-01-22] MEDS: BUPRENORPHINE HCL 2 MG TAB.SUBL SL SCH ×2 (09:36→21:52)
[2018-01-22] MEDS: LEVETIRACETAM 500 MG TABLET PO SCH ×2 (09:36→21:50)
[2018-01-22] MEDS: GABAPENTIN 300 MG CAPSULE PO SCH ×3 (09:36→21:50)
[2018-01-22] MEDS: BACLOFEN 20 MG TABLET PO SCH ×3 (09:36→21:51)
[2018-01-22] MEDS ORDERED: METHYL SALICYLATE/MENTHOL CREAM 28 GM TUBE TOP PRN (11:45)
[2018-01-22 12:29] VITALS: BP 118/73
[2018-01-22] MEDS ORDERED: CLON0.1T14 PO (12:46)
[2018-01-22] MEDS ORDERED: IBUP-1955 PO (12:46)
[2018-01-22] MEDS ORDERED: BACL20TA PO (12:46)
[2018-01-22] MEDS ORDERED: DIVA250T4 PO (12:46)
[2018-01-22] MEDS ORDERED: DICY20TA28 PO (12:46)
[2018-01-22] MEDS ORDERED: GABA-534 PO (12:46)
[2018-01-22] MEDS ORDERED: LEVE500T9 PO (12:46)
[2018-01-22] MEDS ORDERED: HYDR-3895 PO (12:46)
[2018-01-22] MEDS ORDERED: LIDO30AD10 TD (12:46)
[2018-01-22 16:30] VITALS: BP 130/69
--- NOTE | 2018-01-22 18:55 | NUR ---
End of Shift Complex Manager provided report on 37 year old male admitted to [facility] on 01/17/18 for medical management of ETOH, Benzodiazepine and Opiate withdrawals. Pt endorses NKA, full code and regular diet. Pt endorses PMH of Epilepsy, TBI, chronic back pain with spine surgery as well multiple surgeries. PPH of Bipolar and anxiety. Pt currently on a Ativan and Subutex taper, tolerating well with last COWS 6 and CIWA 7 recorded at 1630. No PRN medication administered this shift.. Pt is currently on a 5150 legal status d/t GD, with 1:1 attendant at bedside. Pt is Alert and Oriented to name, place and situation, but still having difficulty with date. Pt is confused and slow to process. Pt is hyper-verbal, not pressured, and tangential. Pt is able to recollect information from his immediate past, but becomes disoriented on dates and timeline. Pt is cooperative, pleasant and polite. Pt enjoys conversing and states so. Pt had a PT evaluation and was walked around the unit using a walker. PT to re-evaluate tomorrow. Bed in low position with wheels locked and side rails up x2.
[2018-01-22 20:00] VITALS: BP 136/82
--- NOTE | 2018-01-22 20:00 | NUR ---
START OF SHIFT NOTE RECEIVED REPORT FROM DAY SHIFT NURSE. PATIENT IS A 37 YEAR OLD MALE ADMITTED FOR ETOH/OPIATE/BENZO WITHDRAWAL. PATIENT IS ON 4TH DAY OF HIS 5 DAY ATIVAN AND 5 DAY SUBUTEX TAPER. PATIENT IS ON 1:1 FOR SAFETY AND ON 5150 FOR GRAVE DISABILITY. PATIENT CONFUSED TO DATE. LAST COWS 6 AND CIWA 7. PATIENT DID NOT REQUIRE PRN MEDICATION. RECEIVED PATIENT IN THE ROOM , DISHEVELED, UNSHAVEN, ANXIOUS, FLUSHED FACE, DIFFICULTY CONCENTRATING, HYPERVERBAL AND C/O BACK PAIN. PATIENT ORIENTED TO SELF BUT UNCERTAIN OF DATE. REALITY ORIENTATION PROVIDED. SAFETY MEASURES IN PLACE. CALL LIGHT IN REACH. WILL CONTINUE TO MONITOR.
[2018-01-22] MEDS: DEPAKOTE 500 MG PO SCH (21:51)
--- NOTE | 2018-01-23 | NUR ---
ERNIE AND MORGAN DEFERRED PATIENT IN BED SLEEPING. RESPIRATION EVEN AND UNLABORED. VS REFUSED, PUT'S HIS ARMS AWAY. WILL CONTINUE TO MONITOR
--- NOTE | 2018-01-23 04:00 | NUR ---
ERNIE AND MORGAN DEFERRED PATIENT IN BED SLEEPING. RESPIRATION EVEN AND UNLABORED. VS REFUSED, PUT'S HIS ARMS AWAY. WILL CONTINUE TO MONITOR
[2018-01-23] MEDS: KETOROLAC TROMETHAMINE 30 MG INJ IM PRN (04:20)
--- NOTE | 2018-01-23 04:20 | NUR ---
PRN TORADOL IM ADMINISTRATION PATIENT C/O LOWER BACK PAIN 04/19. WILL MONITOR FOR EFFECTIVENESS
--- NOTE | 2018-01-23 05:20 | NUR ---
PRN TORADOL IM RE-ASSESSMENT PATIENT IN BED WITH EYES CLOSED. RESPIRATION EVEN AND UNLABORED. WILL CONTINUE TO MONITOR.
--- NOTE | 2018-01-23 07:13 | NUR ---
END OF SHIFT NOTE PATIENT SLEPT 6 HOURS. FLUID INTAKE 650 ML. VOIDED X 2. NO BM. MONITORED PATIENT THROUGHOUT SHIFT. PATIENT ON 1:1 FOR SAFETY AND ON 5150 FOR GRAVE DISABILITY. PATIENT ORIENTED TO SELF, PLACE BUT UNCERTAIN OF DATE. REALITY ORIENTATION PROVIDED. PATIENT COMPLIANT WITH MEDICATION . PATIENT HAS BEEN SLEEPING MOST OF THE SHIFT. AT 0420, C/O BACK PAIN. PRN TORADOL IM GIVEN . SAFETY MEASURES IN PLACE. CALL LIGHT IN REACH. WILL CONTINUE TO MONITOR. LAST COWS 7 AND CIWA 7.
--- NOTE | 2018-01-23 07:15 | NUR ---
END OF SHIFT NOTE PATIENT SLEPT 7 HOURS. FLUID INTAKE 588 ML. VOIDED X 1. NO BM. PATIENT IS A 36 YEAR OLD MALE NEWLY ADMITTED FOR OPIATE/BENZO WITHDRAWAL. PATIENT WAS PLACED ON 5 DAY ATIVAN AND 5 DAY SUBUTEX TAPER TO START TODAY. PATIENT COMPLIANT WITH CARE AND MEDICATION. PATIENT DID NOT REQUIRE PRN MEDICATION. SCHEDULED ATIVAN GIVEN ORDERED. SAFETY MEASURES IN PLACE. CALL LIGHT IN REACH. WILL CONTINUE TO MONITOR. LAST COWS 7 AND CIWA 7. Addendum: 01/23/18 at 0716 by JOSHUA SCOTT LVN ERROR : THIS CHARTING IS FOR ANOTHER PATIENT
--- NOTE | 2018-01-23 07:30 | NUR ---
Start of Shift Account Assistant received report on 37 year old male admitted to [facility] on 01/17/18 for medical management of ETOH, Benzodiazepine and Opiate withdrawals. Pt endorses NKA, full code and regular diet. Pt endorses PMH of Epilepsy, TBI, chronic back pain with spine surgery as well multiple surgeries. PPH of Bipolar and anxiety. Pt currently on a Ativan and Subutex taper, tolerating well with last COWS 7 and CIWA 7 at per NOC report. Pt administered Toradol(pain) PRN per NOC report. Pt is currently on a 5150 legal status , due to tonight at 2200, d/t GD, with 1:1 attendant at bedside. Account Assistant encounters pt in room, A/O x3, still fuzzy on year and month. Friendly, pleasant and cooperative. Makes needs known. Bed in low position with wheels locked and side rails up x2. Will continue to monitor, support and encourage according to plan of care.
[2018-01-23 08:16] VITALS: BP 109/72
[2018-01-23] MEDS: CLONIDINE HCL 0.1 MG TABLET PO SCH ×2 (08:38→20:19)
[2018-01-23] MEDS: DICYCLOMINE HCL 20 MG TABLET PO SCH ×3 (08:38→20:19)
[2018-01-23] MEDS: BACLOFEN 20 MG TABLET PO SCH ×3 (08:39→20:20)
[2018-01-23] MEDS: THIAMINE HCL 100 MG TABLET PO SCH (08:39)
[2018-01-23] MEDS: FOLIC ACID 1 MG TABLET PO SCH (08:39)
[2018-01-23] MEDS: DOCUSATE SODIUM 250 MG CAPSULE PO SCH (08:39)
[2018-01-23] MEDS: DIVALPROEX 250 MG TABLET.DR PO SCH (08:39)
[2018-01-23] MEDS: GABAPENTIN 300 MG CAPSULE PO SCH ×3 (08:39→20:20)
[2018-01-23] MEDS: MULTIVITAMINS,THERAPEUTIC TABLET PO SCH (08:39)
[2018-01-23] MEDS: LEVETIRACETAM 500 MG TABLET PO SCH ×2 (08:39→20:20)
[2018-01-23] MEDS: LIDOCAINE 5% PATCH TD SCH (08:40)
[2018-01-23] MEDS ORDERED: LORAZEPAM 1 MG TABLET PO SCH (09:00)
[2018-01-23] MEDS ORDERED: BUPRENORPHINE HCL 2 MG TAB.SUBL SL SCH (09:00)
[2018-01-23 12:21] VITALS: BP 134/95
[2018-01-23 16:30] VITALS: BP 135/83
--- NOTE | 2018-01-23 18:55 | NUR ---
End of Shift Magistrate Judge provided report on 37 year old male admitted to [facility] on 01/17/18 for medical management of ETOH, Benzodiazepine and Opiate withdrawals. Pt endorses NKA, full code and regular diet. Pt endorses PMH of Epilepsy, TBI, chronic back pain with spine surgery as well multiple surgeries. PPH of Bipolar and anxiety. Pt currently on a Ativan and Subutex taper, tolerating well with last COWS 6 and CIWA 9 at 1630. No PRN medication administered this shift. Pt is currently on a 5150 legal status , due to tonight at 2200, d/t GD, with 1:1 attendant at bedside. Pt has been calm and cooperative, makes his needs known. Slow to respond and tangential in thought process. A/O x3, disoriented to date. Pt is polite and friendly. Normal affect with an anxious mood. Bed in low position with wheels locked and side rails up x2.
--- NOTE | 2018-01-23 19:05 | NUR ---
Start of Shift Patient Received. Patient is noted in his room, awake, verbally responsive to name and place. Per endorsement, patient completed a 5 day Ativan and 5 day Subutex taper. He is set for discharge tomorrow 01/24/18. Patient is currently placed on 1:1 for episodes of confusion. No episodes of hallucinations noted. No PRN medications administered. Last noted COWS 6 and CIWA 9. All needs attended to promptly. Will continue to monitor.
[2018-01-23 20:06] VITALS: BP 122/78
[2018-01-23] MEDS: HYDROXYZINE PAMOATE 25 MG CAPSULE PO PRN (20:20)
[2018-01-23] MEDS: DEPAKOTE 500 MG PO SCH (20:20)
--- NOTE | 2018-01-23 20:28 | NUR ---
PRN Medication Administration patient is verbalizing increased anxiety, noted to be restless in bed, and hyperverbal. Patient is noted with an episode of hallucination. Patient states "When we went to the beach today maybe the salt water irritated my skin." Patient is oriented to name and place. Patient then states "man I guess Im still trippin." Will continue to monitor.
[2018-01-23] MEDS ORDERED: diphenhydrAMINE/ZINC ACET CREAM 28 GM TUBE TOP PRN (20:45)
[2018-01-23] MEDS ORDERED: HYDROCORTISONE 1% CREAM 30 GM TUBE TP ONE (20:45)
--- NOTE | 2018-01-23 21:30 | NUR ---
PRN Medication Reassessment Patient is noted in his room, awake, and verbally responsive. Breathing even and non labored. Patient received PRN Vistaril for increased anxiety, increased restlessness, and hyperverbal. Patient is able to verbalize "I feel a little better. Im not as jumpy. Im Ok." PRN Vistaril noted to be effective. Will continue to monitor.
[2018-01-23] MEDS: QUETIAPINE FUMARATE 25 MG TABLET PO PRN (23:05)
--- NOTE | 2018-01-23 23:05 | NUR ---
PRN Medication Administration Patient is noted with increased agitation and is easily irritable. PRN Seroquel administered. Will continue to monitor.
[2018-01-23] MEDS ORDERED: diphenhydrAMINE 50 MG CAPSULE PO ONE (23:15)
--- NOTE | 2018-01-24 | NUR ---
PRN Medication Reassessment Patient is noted in bed sleeping. breathing even and non labored. No signs of restlessness or discomfort noted. PRN Seroquel noted to be effective. Will continue to monitor.
[2018-01-24 00:21] VITALS: BP 129/73
[2018-01-24 04:15] VITALS: BP 117/65
--- NOTE | 2018-01-24 07:09 | NUR ---
End of Shift Patient is in his room, awake, alert to name place and situation. Breathing even and non labored. Patient completed a 5 day Ativan and 5 day Subutex taper. He is set for discharge today 01/24/18. Patient was placed on 1:1 for episodes of confusion. Patient was noted with one episode of confusion noted but was able to be reoriented with no complications noted. He received PRN Vistaril and Seroquel with medications noted to be effective. Last noted COWS 8 and CIWA 8. All needs attended to promptly. Will continue to plan of care as ordered.
--- NOTE | 2018-01-24 07:36 | NUR ---
BEGINNING OF SHIFT Patient endorsement report received from lieutenant shift supervisor nurse, all pertinent information discussed. Patient is a 37 year old male with admitting Dx: Opiate/BZO/etoh withdrawal. Patient completed activa and Subutex taper, and is scheduled to be discharged this morning. Patient currently is with 1: 1 sitter at bedside for safety precautions. Patient with hx of confusion and hallucinations. will monitor closely for any episodes prior to discharge. fall and seizure precautions in place and observed at all times. patient slept for 7 hours. Patient with last ciwa score of: 8, last cow score of: 8. Patient received in bed with eyes closed respirations even and unlabored, responsive to verbal stimuli. will educated regarding plan of care for the day, and medication regimen. Patient received PRN: Seroquel and Vistaril during lieutenant shift supervisor. will continue to monitor closely. safety measures in place.
[2018-01-24 08:12] VITALS: BP 143/90
[2018-01-24 08:41] VITALS: BP 143/90
[2018-01-24] MEDS: MULTIVITAMINS,THERAPEUTIC TABLET PO SCH (08:41)
[2018-01-24] MEDS: CLONIDINE HCL 0.1 MG TABLET PO SCH (08:41)
[2018-01-24] MEDS: FOLIC ACID 1 MG TABLET PO SCH (08:41)
[2018-01-24] MEDS: LIDOCAINE 5% PATCH TD SCH (08:41)
[2018-01-24] MEDS: DICYCLOMINE HCL 20 MG TABLET PO SCH (08:41)
[2018-01-24] MEDS: THIAMINE HCL 100 MG TABLET PO SCH (08:41)
[2018-01-24] MEDS: GABAPENTIN 300 MG CAPSULE PO SCH (08:41)
[2018-01-24] MEDS: BACLOFEN 20 MG TABLET PO SCH (08:41)
[2018-01-24] MEDS: DOCUSATE SODIUM 250 MG CAPSULE PO SCH (08:41)
--- NOTE | 2018-01-24 09:45 | NUR ---
DISCHARGE Patient was discharged off the unit at 0945, patient was provided with teaching and education regarding discharge instructions with good verbal understanding. Patient was alert and oriented x4, no episodes of confusion or hallucinations were noted. Self motivated towards sobriety. Patients discharge instructions, home medications and prescriptions were in placed in patients personal duffel bag. Patients vital signs WNL. Patient with last cow score of: 5 and last ciwa score of: 5. Patient off the unit at 0945.
== END 2018-01-24 09:45 | DRG 895 ==
LOC: SRC 15:31
PROVIDERS: ADMIT Internal Medicine; ATTEND Internal Medicine
PROC: HZ2ZZZZ Detoxification Services for Substance Abuse Treatment (ICD-10-PCS; principal; 2018-01-17)
PROC: HZ41ZZZ Group Counseling for Substance Abuse Treatment, Behavioral (ICD-10-PCS; 2018-01-18)
PROC: HZ31ZZZ Individual Counseling for Substance Abuse Treatment, Behavioral (ICD-10-PCS; 2018-01-20)
DX: F10.232 Alcohol dependence with withdrawal with perceptual disturbance (principal); G40.919 Epilepsy, unspecified, intractable, without status epilepticus; Z86.74 Personal history of sudden cardiac arrest; F31.5 Bipolar disorder, current episode depressed, severe, with psychotic features; F23 Brief psychotic disorder; F13.230 Sedative, hypnotic or anxiolytic dependence with withdrawal, uncomplicated; I15.9 Secondary hypertension, unspecified; F11.23 Opioid dependence with withdrawal; Y90.0 Blood alcohol level of less than 20 mg/100 ml; G89.29 Other chronic pain; Z81.3 Family history of other psychoactive substance abuse and dependence; Z81.8 Family history of other mental and behavioral disorders; Z90.81 Acquired absence of spleen; F41.9 Anxiety disorder, unspecified; Z87.820 Personal history of traumatic brain injury; Z79.899 Other long term (current) drug therapy; G47.00 Insomnia, unspecified; M54.5 Low back pain; Z91.89 Other specified personal risk factors, not elsewhere classified; F12.20 Cannabis dependence, uncomplicated; R73.9 Hyperglycemia, unspecified; D72.829 Elevated white blood cell count, unspecified
CPT/HCPCS: 36415; 70030-TC; 80307; 80346; 80349; 83735; 84443; 85025; 86580; 86592; 86705; 86803; 87340; 87806; 97110; 97116; 97530; A4663; G0480; J1885; J3411; J3490; Q0162; Q0163